=== PATIENT | male | born 1935 | race Caucasian/White ===

== ENCOUNTER 2017-01-18 10:53 | Inpatient (IN) | payer OTHER ==
[~2017-01-18] VITALS: Ht 157.5 cm; Wt 73.1 kg
[~2017-01-18 10:53] MED LIST: ALEVE220 M2 PO; BAYER CHILDREN'81 M1 PO; CITALOPRAM HBR20 MG PO; Celexa PO; Colchicine,Colcrys PO; LEVAQUIN750 MG PO; LEVITRA20 MG PO; METOPROLOL SUCC25 MG PO; MOTRIN IB200 MG PO; MOTRIN400 MG PO; NORVASC10 MG PO; NORVASC5 MG PO; PRAVACHOL40 MG PO; PRAVASTATIN SOD40 MG PO; TOPROL XL50 MG PO; Tylenol Regular Stre PO; ULTRAM50 MG PO; XARELTO15 MG PO
[2017-01-18 11:53] LABS: BASOPHIL COUNT 0.1 K/uL (0-0.1); EOSINOPHIL (%) 1.9 % (0-5); EOSINOPHIL COUNT 0.1 K/uL (0-0.3); HEMATOCRIT 50.6 % (38.0-50.0); IMMATURE GRANULOCYTE (%) 0.6 % (0.0-0.7); INSTRUMENT ABS NEUTROPHIL CT 4.1 K/uL; LYMPHOCYTE COUNT 1.3 K/uL (1.0-2.8); MCH 31.1 PG (29.0-34.0); MCHC 34.4 G/DL (30.0-36.0); MCV 90.5 FL (86-99); MEAN PLAT.VOLUME 9.3 uM^3 (9.0-12.4); MONOCYTE (%) 8.9 % (3-12); MONOCYTE COUNT 0.6 K/uL (0-0.8); NEUTROPHIL (%) 66.4 % (45-76); NEUTROPHIL COUNT 4.1 K/uL (1.8-6.4); PLATELET COUNT 163 K/uL (156-360); RBC DIS.WIDTH-CV 13.2 % (11.8-14.6); RBC DIS.WIDTH-SD 43.9 % (39-53); RED BLOOD COUNT 5.59 M/uL (4.00-5.50); WHITE BLOOD COUNT 6.2 K/uL (4.1-10.2)
[2017-01-18 12:01] LABS: CHLORIDE 104 mEq/L (99-109); POTASSIUM 3.9 mEq/L (3.7-5.4); SODIUM 140 mEq/L (136-147)
[2017-01-18 12:03] LABS: GLUCOSE 90 mg/dL (70-99)
[2017-01-18 12:05] LABS: ANION GAP 10 MEQ/L (2-14)
[2017-01-18 12:06] LABS: SERUM ETHYL ALCOHOL < 10 mg/dL
[2017-01-18 12:07] LABS: GFR ESTIMATE (CALCULATED) > 59 mL/min/
[2017-01-18 12:08] LABS: UREA NITROGEN (BUN) 20 mg/dL (9-23)
[2017-01-18 14:30] VITALS: BP 179/83
[2017-01-18 16:12] VITALS: BP 148/67
[2017-01-18] MEDS ORDERED: ALLOPURINOL100 MG PO (18:42)
[2017-01-18] MEDS ORDERED: LATANOPROST2.5 ML BOTH EYES (18:42)
[2017-01-18] MEDS ORDERED: LO-DOSE ASPIRIN81 M1 PO (18:42)
[2017-01-18] MEDS ORDERED: BUSPAR5 MG PO (18:43)
[2017-01-18] MEDS ORDERED: XARELTO15 MG PO (18:43)
[2017-01-18] MEDS ORDERED: AMLODIPINE BESY10 MG PO (18:43)
[2017-01-18] MEDS ORDERED: PRAVASTATIN SOD40 MG PO (18:43)
[2017-01-18] MEDS ORDERED: CITALOPRAM HBR20 MG PO (18:44)
[2017-01-18 19:34] VITALS: BP 147/85
[2017-01-19 08:01] VITALS: BP 157/94
[2017-01-19 15:26] VITALS: BP 150/76
[2017-01-19 15:35] LABS: ADD MIUA? NO; BILIRUBIN NEGATIVE; BLOOD NEGATIVE; COLOR YELLOW ((YELLOW)); GLUCOSE (STRIP) NEGATIVE; KETONES NEGATIVE; LEUKOCYTES NEGATIVE; NITRITE NEGATIVE; PROTEIN (STRIP) NEGATIVE; SPECIFIC GRAVITY 1.012 (1.000-1.030); UROBILINOGEN 0.2 MG/DL (0.2-1.0)
[2017-01-19 18:14] VITALS: BP 145/69
[2017-01-20 08:20] VITALS: BP 174/81
[2017-01-20 15:20] VITALS: BP 132/67
[2017-01-20 17:48] VITALS: BP 169/72
[2017-01-21 09:31] VITALS: BP 132/70
[2017-01-21 15:54] VITALS: BP 134/67
[2017-01-22 08:02] VITALS: BP 164/77
[2017-01-22 09:50] LABS: ANION GAP 9 MEQ/L (2-14); CHLORIDE 102 MEQ/L (99-109); GFR ESTIMATE (CALCULATED) > 59 mL/min/; GLUCOSE 192 mg/dL (70-99); POTASSIUM 4.6 MEQ/L (3.7-5.4); SAMPLE HEMOLYSIS CHECK 0; SAMPLE ICTERIC CHECK 0; SAMPLE LIPEMIA CHECK 0; SODIUM 141 MEQ/L (136-147); UREA NITROGEN (BUN) 25 mg/dL (9-23)
[2017-01-22] MEDS ORDERED: DONEPEZIL HCL10 MG PO (10:47)
[2017-01-22] MEDS ORDERED: PRAVASTATIN SOD40 MG PO (10:47)
[2017-01-22] MEDS ORDERED: LISINOPRIL5 MG PO (10:47)
[2017-01-22] MEDS ORDERED: QUETIAPINE FUMA25 MG PO (10:47)
[2017-01-22] MEDS ORDERED: METOPROLOL SUCC25 MG PO (10:47)
== END 2017-01-22 12:49 | disposition home or self-care (01) | DRG 884 ==
LOC: EME 10:53 → EDOF 12:49 → 1WEST 12:49 → EDOF 13:19 → 1WEST 14:29
PROVIDERS: Emergency Medicine; Family Medicine; Nurse Practitioner Family
DX: F03.91 Unspecified dementia, unspecified severity, with behavioral disturbance (principal); I10 Essential (primary) hypertension; E78.5 Hyperlipidemia, unspecified; I25.2 Old myocardial infarction; Z95.5 Presence of coronary angioplasty implant and graft; M10.9 Gout, unspecified; L57.0 Actinic keratosis; R45.851 Suicidal ideations; Z87.891 Personal history of nicotine dependence; Z86.718 Personal history of other venous thrombosis and embolism
CPT/HCPCS: 70450; 80048; 81003; 85025; 90839; 97150 GO; 97165 GO; 99281; 99285; G0480

== ENCOUNTER 2017-03-16 17:14 | Inpatient (IN) | payer OTHER ==
[~2017-03-16] VITALS: Ht 157.5 cm; Wt 71.4 kg
[~2017-03-16 17:14] MED LIST changes: +ALLOPURINOL100 MG PO; +AMLODIPINE BESY10 MG PO; +BUSPAR5 MG PO; +DONEPEZIL HCL10 MG PO; +LATANOPROST2.5 ML BOTH EYES; +LISINOPRIL5 MG PO; +LO-DOSE ASPIRIN81 M1 PO; +QUETIAPINE FUMA25 MG PO
[2017-03-16 19:21] LABS: HEMATOCRIT 45.8 % (38.0-50.0); MCHC 33.8 G/DL (30.0-36.0); MCV 91.6 FL (86-99); MEAN PLAT.VOLUME 9.1 uM^3 (9.0-12.4); PLATELET COUNT 128 K/uL (156-360); RBC DIS.WIDTH-CV 13.5 % (11.8-14.6); RBC DIS.WIDTH-SD 45.5 % (39-53); WHITE BLOOD COUNT 9.1 K/uL (4.1-10.2)
[2017-03-16 19:29] LABS: CHLORIDE 101 mEq/L (99-109); SODIUM 134 mEq/L (136-147)
[2017-03-16 19:31] LABS: GLUCOSE 161 mg/dL (70-99)
[2017-03-16 19:32] LABS: ANION GAP 10 MEQ/L (2-14)
[2017-03-16 19:35] LABS: GFR ESTIMATE (CALCULATED) 52 mL/min/
[2017-03-16 19:36] LABS: UREA NITROGEN (BUN) 19 mg/dL (9-23)
[2017-03-16] MEDS ORDERED: ALEVE220 MG PO (20:19)
[2017-03-16] MEDS ORDERED: METOPROLOL SUCC25 MG PO (20:22)
[2017-03-16] MEDS ORDERED: LISINOPRIL5 MG PO (20:22)
[2017-03-16] MEDS ORDERED: DONEPEZIL HCL10 MG PO (20:23)
[2017-03-16 20:28] LABS: ERTH.SED.RATE 33 MM/HR (0-20)
[2017-03-16 20:49] LABS: C-REACTIVE PROTEIN 108.1 MG/L (0-10)
[2017-03-16 22:19] VITALS: BP 131/63
[2017-03-17 07:42] LABS: ANION GAP 9 MEQ/L (2-14); CHLORIDE 102 MEQ/L (99-109); GFR ESTIMATE (CALCULATED) 48 mL/min/; POTASSIUM 4.2 MEQ/L (3.7-5.4); SAMPLE HEMOLYSIS CHECK 0; SAMPLE ICTERIC CHECK 0; SAMPLE LIPEMIA CHECK 0; SODIUM 137 MEQ/L (136-147); UREA NITROGEN (BUN) 24 mg/dL (9-23); URIC ACID 5.4 mg/dL (3.1-9.2)
[2017-03-17 07:43] LABS: GLUCOSE 115 mg/dL (70-99)
[2017-03-17 07:45] VITALS: BP 117/58
[2017-03-17 07:54] LABS: EOSINOPHIL (%) 1.9 % (0-5); EOSINOPHIL COUNT 0.1 K/uL (0-0.3); IMMATURE GRANULOCYTE (%) 0.8 % (0.0-0.7); IMMATURE GRANULOCYTE COUNT 0.1 K/uL; INSTRUMENT ABS NEUTROPHIL CT 4.7 K/uL; LYMPHOCYTE COUNT 0.7 K/uL (1.0-2.8); MCH 31.4 PG (29.0-34.0); MCHC 33.7 G/DL (30.0-36.0); MCV 93.4 FL (86-99); MEAN PLAT.VOLUME 9.8 uM^3 (9.0-12.4); MONOCYTE (%) 10.4 % (3-12); MONOCYTE COUNT 0.7 K/uL (0-0.8); NEUTROPHIL (%) 74.7 % (45-76); NEUTROPHIL COUNT 4.7 K/uL (1.8-6.4); PLATELET COUNT 111 K/uL (156-360); RBC DIS.WIDTH-CV 13.9 % (11.8-14.6); RBC DIS.WIDTH-SD 47.7 % (39-53); RED BLOOD COUNT 4.39 M/uL (4.00-5.50)
[2017-03-17 08:02] LABS: WHITE BLOOD COUNT 6.3 K/uL (4.1-10.2)
[2017-03-17 15:34] VITALS: BP 119/61
[2017-03-18 00:01] VITALS: BP 120/57
[2017-03-18 06:38] VITALS: BP 131/61
[2017-03-18 07:39] LABS: EOSINOPHIL (%) 4.9 % (0-5); EOSINOPHIL COUNT 0.2 K/uL (0-0.3); HEMATOCRIT 40.9 % (38.0-50.0); IMMATURE GRANULOCYTE (%) 0.7 % (0.0-0.7); INSTRUMENT ABS NEUTROPHIL CT 2.8 K/uL; LYMPHOCYTE COUNT 0.8 K/uL (1.0-2.8); MCH 30.6 PG (29.0-34.0); MCHC 32.8 G/DL (30.0-36.0); MCV 93.4 FL (86-99); MEAN PLAT.VOLUME 9.7 uM^3 (9.0-12.4); MONOCYTE (%) 10.9 % (3-12); MONOCYTE COUNT 0.5 K/uL (0-0.8); NEUTROPHIL (%) 63.8 % (45-76); NEUTROPHIL COUNT 2.8 K/uL (1.8-6.4); PLATELET COUNT 115 K/uL (156-360); RBC DIS.WIDTH-CV 13.6 % (11.8-14.6); RBC DIS.WIDTH-SD 46.4 % (39-53); RED BLOOD COUNT 4.38 M/uL (4.00-5.50)
[2017-03-18 07:51] LABS: ANION GAP 6 MEQ/L (2-14); CHLORIDE 107 MEQ/L (99-109); GFR ESTIMATE (CALCULATED) 52 mL/min/; GLUCOSE 101 mg/dL (70-99); POTASSIUM 4.4 MEQ/L (3.7-5.4); SAMPLE HEMOLYSIS CHECK 0; SAMPLE ICTERIC CHECK 0; SAMPLE LIPEMIA CHECK 0; SODIUM 139 MEQ/L (136-147); UREA NITROGEN (BUN) 23 mg/dL (9-23)
[2017-03-18 07:57] LABS: WHITE BLOOD COUNT 4.3 K/uL (4.1-10.2)
[2017-03-18 15:28] VITALS: BP 136/65
[2017-03-18 23:05] VITALS: BP 144/70
[2017-03-19 04:01] VITALS: BP 123/74
[2017-03-19 08:14] LABS: ANION GAP 5 MEQ/L (2-14); CHLORIDE 107 MEQ/L (99-109); GFR ESTIMATE (CALCULATED) 56 mL/min/; GLUCOSE 94 mg/dL (70-99); POTASSIUM 4.8 MEQ/L (3.7-5.4); SAMPLE HEMOLYSIS CHECK 0; SAMPLE ICTERIC CHECK 0; SAMPLE LIPEMIA CHECK 0; SODIUM 140 MEQ/L (136-147); UREA NITROGEN (BUN) 19 mg/dL (9-23)
[2017-03-19 09:16] VITALS: BP 126/65
[2017-03-19] MEDS ORDERED: AUGMENTIN875 MG PO (12:07)
[2017-03-19] MEDS ORDERED: Colchicine,Colcrys PO (12:07)
== END 2017-03-19 13:35 | disposition home health service (06) | DRG 603 ==
LOC: EME 17:14 → EDOF 21:10 → 5EAST 21:10
PROVIDERS: Emergency Medicine; Family Medicine
DX: L03.115 Cellulitis of right lower limb (principal); F32.9 Major depressive disorder, single episode, unspecified; E78.5 Hyperlipidemia, unspecified; K21.9 Gastro-esophageal reflux disease without esophagitis; I25.10 Atherosclerotic heart disease of native coronary artery without angina pectoris; F41.9 Anxiety disorder, unspecified; F03.90 Unspecified dementia, unspecified severity, without behavioral disturbance, psychotic disturbance, mood disturbance, and anxiety; I12.9 Hypertensive chronic kidney disease with stage 1 through stage 4 chronic kidney disease, or unspecified chronic kidney disease; N18.2 Chronic kidney disease, stage 2 (mild); M10.00 Idiopathic gout, unspecified site; I25.2 Old myocardial infarction; Z79.82 Long term (current) use of aspirin; Z87.891 Personal history of nicotine dependence; Z86.718 Personal history of other venous thrombosis and embolism
CPT/HCPCS: 73564; 73610; 80048; 83605; 84550; 85025; 85027; 85651; 86140; 87040; 97530 GO; 99281; 99285; J0696; J1650; J3370; J7050

== ENCOUNTER 2017-04-05 06:53 | Observation (INO) | payer OTHER ==
[~2017-04-05] VITALS: Ht 157.5 cm; Wt 71.9 kg
[~2017-04-05 06:53] MED LIST changes: +ALEVE220 MG PO; +AUGMENTIN875 MG PO
[2017-04-05 08:34] LABS: ANION GAP 11 MEQ/L (2-14); CHLORIDE 104 MEQ/L (99-109); POTASSIUM 4.7 MEQ/L (3.7-5.4); SAMPLE HEMOLYSIS CHECK 1; SAMPLE ICTERIC CHECK 0; SAMPLE LIPEMIA CHECK 0; SODIUM 138 MEQ/L (136-147); TOTAL BILIRUBIN 0.6 MG/DL (0.0-1.0)
[2017-04-05 08:40] LABS: ALKALINE PHOSPHATASE 79 IU/L (3-129); GFR ESTIMATE (CALCULATED) 52 mL/min/; GLUCOSE 134 mg/dL (70-99); UREA NITROGEN (BUN) 24 mg/dL (9-23); URIC ACID 6.3 mg/dL (3.1-9.2)
[2017-04-05 09:11] LABS: C-REACTIVE PROTEIN 24.9 MG/L (0-10)
[2017-04-05 09:27] LABS: BASOPHIL COUNT 0.1 K/uL (0-0.1); EOSINOPHIL (%) 0.6 % (0-5); EOSINOPHIL COUNT 0.1 K/uL (0-0.3); HEMATOCRIT 44.4 % (38.0-50.0); IMMATURE GRANULOCYTE (%) 0.9 % (0.0-0.7); IMMATURE GRANULOCYTE COUNT 0.1 K/uL; INSTRUMENT ABS NEUTROPHIL CT 6.2 K/uL; LYMPHOCYTE COUNT 0.9 K/uL (1.0-2.8); MCH 30.5 PG (29.0-34.0); MCHC 33.6 G/DL (30.0-36.0); MCV 90.8 FL (86-99); MEAN PLAT.VOLUME 9.9 uM^3 (9.0-12.4); MONOCYTE (%) 8.4 % (3-12); MONOCYTE COUNT 0.7 K/uL (0-0.8); NEUTROPHIL (%) 78.2 % (45-76); NEUTROPHIL COUNT 6.2 K/uL (1.8-6.4); PLATELET COUNT 141 K/uL (156-360); RBC DIS.WIDTH-SD 46.9 % (39-53); RED BLOOD COUNT 4.89 M/uL (4.00-5.50); WHITE BLOOD COUNT 7.9 K/uL (4.1-10.2)
[2017-04-05] MEDS ORDERED: ARICEPT5 MG PO (12:56)
[2017-04-05 13:42] VITALS: BP 176/79
[2017-04-05 15:09] VITALS: BP 145/69
[2017-04-05 16:38] LABS: ERTH.SED.RATE 22 MM/HR (0-20)
[2017-04-05 19:44] VITALS: BP 144/70
[2017-04-05 23:55] VITALS: BP 147/68
[2017-04-06 03:47] VITALS: BP 125/63
[2017-04-06 07:18] LABS: EOSINOPHIL (%) 4.4 % (0-5); EOSINOPHIL COUNT 0.2 K/uL (0-0.3); HEMATOCRIT 40.6 % (38.0-50.0); IMMATURE GRANULOCYTE (%) 1.2 % (0.0-0.7); IMMATURE GRANULOCYTE COUNT 0.1 K/uL; LYMPHOCYTE COUNT 1.2 K/uL (1.0-2.8); MCH 31.2 PG (29.0-34.0); MCV 91.6 FL (86-99); MEAN PLAT.VOLUME 9.9 uM^3 (9.0-12.4); MONOCYTE (%) 11.2 % (3-12); MONOCYTE COUNT 0.6 K/uL (0-0.8); NEUTROPHIL (%) 58.4 % (45-76); PLATELET COUNT 129 K/uL (156-360); RBC DIS.WIDTH-CV 14.1 % (11.8-14.6); RBC DIS.WIDTH-SD 47.6 % (39-53); RED BLOOD COUNT 4.43 M/uL (4.00-5.50); WHITE BLOOD COUNT 5.2 K/uL (4.1-10.2)
[2017-04-06 07:47] LABS: ANION GAP 8 MEQ/L (2-14); CHLORIDE 103 MEQ/L (99-109); GFR ESTIMATE (CALCULATED) 56 mL/min/; POTASSIUM 3.9 MEQ/L (3.7-5.4); SAMPLE HEMOLYSIS CHECK 0; SAMPLE ICTERIC CHECK 0; SAMPLE LIPEMIA CHECK 0; SODIUM 138 MEQ/L (136-147); UREA NITROGEN (BUN) 19 mg/dL (9-23)
[2017-04-06 07:48] LABS: GLUCOSE 95 mg/dL (70-99)
[2017-04-06 08:01] VITALS: BP 143/72
[2017-04-06 11:44] VITALS: BP 182/81
[2017-04-06 15:46] VITALS: BP 140/68
[2017-04-06] MEDS ORDERED: PREDNISONE10 MG PO (16:51)
[2017-04-06] MEDS ORDERED: ALLOPURINOL100 MG PO (16:52)
[2017-04-06 20:07] LABS: C DIFF TOXIN POSITIVE (NEGATIVE)
[2017-04-06 21:16] LABS: PROBE CHECK PASS
== END 2017-04-06 18:24 | disposition home health service (06) ==
LOC: EME → EDBD 06:53 → 2EAST 12:03 → EDOF 12:03 → 2EAST 13:31
PROVIDERS: Emergency Medicine; Family Medicine
DX: M10.9 Gout, unspecified (principal); I10 Essential (primary) hypertension; I25.10 Atherosclerotic heart disease of native coronary artery without angina pectoris; M79.89 Other specified soft tissue disorders; I25.2 Old myocardial infarction; Z87.891 Personal history of nicotine dependence; K21.9 Gastro-esophageal reflux disease without esophagitis; R26.2 Difficulty in walking, not elsewhere classified; F03.90 Unspecified dementia, unspecified severity, without behavioral disturbance, psychotic disturbance, mood disturbance, and anxiety; E78.5 Hyperlipidemia, unspecified; F41.9 Anxiety disorder, unspecified; F32.9 Major depressive disorder, single episode, unspecified
CPT/HCPCS: 73564; 73610; 80048; 80053; 84550; 85025; 85651; 86140; 87493; 87506; 93971; 99281; 99285; G0378; J0690; J1650; J3010; J3370; J7050

== ENCOUNTER 2017-06-23 06:28 | Emergency (ER) | payer OTHER ==
[~2017-06-23] VITALS: Ht 157.5 cm; Wt 73.7 kg
[~2017-06-23 06:28] MED LIST changes: +ARICEPT5 MG PO; +PREDNISONE10 MG PO
[2017-06-23 07:36] LABS: EOSINOPHIL (%) 1.5 % (0-5); EOSINOPHIL COUNT 0.1 K/uL (0-0.3); HEMATOCRIT 46.6 % (38.0-50.0); IMMATURE GRANULOCYTE (%) 0.4 % (0.0-0.7); INSTRUMENT ABS NEUTROPHIL CT 6.5 K/uL; LYMPHOCYTE COUNT 0.8 K/uL (1.0-2.8); MCH 30.5 PG (29.0-34.0); MCHC 33.5 G/DL (30.0-36.0); MEAN PLAT.VOLUME 9.3 uM^3 (9.0-12.4); MONOCYTE (%) 7.2 % (3-12); MONOCYTE COUNT 0.6 K/uL (0-0.8); NEUTROPHIL (%) 80.6 % (45-76); NEUTROPHIL COUNT 6.5 K/uL (1.8-6.4); PLATELET COUNT 121 K/uL (156-360); RBC DIS.WIDTH-SD 47.3 % (39-53); RED BLOOD COUNT 5.12 M/uL (4.00-5.50)
[2017-06-23 07:43] LABS: CHLORIDE 107 mEq/L (99-109); POTASSIUM 4.5 mEq/L (3.7-5.4); SODIUM 140 mEq/L (136-147)
[2017-06-23 07:45] LABS: GLUCOSE 136 mg/dL (70-99)
[2017-06-23 07:46] LABS: ANION GAP 10 MEQ/L (2-14)
[2017-06-23 07:49] LABS: GFR ESTIMATE (CALCULATED) 56 mL/min/
[2017-06-23 07:50] LABS: UREA NITROGEN (BUN) 24 mg/dL (9-23)
[2017-06-23 07:51] LABS: URIC ACID 6.9 mg/dL (3.1-9.2)
[2017-06-23] MEDS ORDERED: PERCOCET 5/31 TABLET PO (10:00)
[2017-06-23 10:26] VITALS: BP 147/68
== END 2017-06-23 10:37 | disposition home or self-care (01) ==
LOC: EME 06:28
PROVIDERS: Emergency Medicine
DX: M10.061 Idiopathic gout, right knee (principal); I10 Essential (primary) hypertension; F02.80 Dementia in other diseases classified elsewhere, unspecified severity, without behavioral disturbance, psychotic disturbance, mood disturbance, and anxiety; G30.9 Alzheimer's disease, unspecified; Z86.718 Personal history of other venous thrombosis and embolism; Z95.5 Presence of coronary angioplasty implant and graft; Z95.811 Presence of heart assist device; Z79.82 Long term (current) use of aspirin; Z87.891 Personal history of nicotine dependence
CPT/HCPCS: 73564; 80048; 84550; 85025; 99281; 99284